=== PATIENT | female | born 1980 | race Two or more races ===

== ENCOUNTER 2023-07-26 01:43 | Emergency (ER) | payer OTHER ==
[2023-07-26] MEDS ORDERED: MECLIZINE 12.5 MG TAB PO STA (03:51)
[2023-07-26] MEDS ORDERED: ONDANSETRON ODT 4 MG TAB PO STA (03:51)
--- NOTE | 2023-07-26 04:56 | ED ---
General Adult HPI - General Chief complaint: Overdose Stated complaint: possible drug overdose Time Seen by Provider: 07/26/23 03:50 Source: patient, RN notes reviewed, old records reviewed Mode of arrival: ambulatory Limitations: no limitations - History of Present Illness Initial comments: Patient is a 43-year-old female with a history remarkable for back surgeries in the past presents emergency department for an episode of nausea and vomiting after taking 5 mg marijuana gummy. States he typically does not take this dose. Again expenses these symptoms immediately afterwards and was told by family to come to the emergency department for evaluation. This occurred multiple hours ago. I evaluated the patient and she was placed in a room. She does endorse mild nausea but is feeling somewhat improved at this time. No other acute complaints. Denies chest pain or shortness of breath. Denies abdominal pain. Endorses an episode of lightheadedness as well. No other acute complaints. Presents for further evaluation. No other drugs or alcohol. - Related Data Allergies Allergy/AdvReac Type Severity Reaction Status Date / Time adhesive tape Allergy Rash/Hives Verified 07/26/23 02:08 oxycodone [From Percocet] AdvReac Anaphylaxis Verified 07/26/23 02:06 Review of Systems ROS Statement: Those systems with pertinent positive or pertinent negative responses have been documented in the HPI. Review of Systems: CONST: Denies fever EYES: Denies blurry vision ENT: Denies nasal congestion C/V: Denies Chest pain RESP: Denies shortness of breath GI: Denies abdominal pain : Denies dysuria SKIN: Denies rash. MSK: Denies joint pain. NEURO: Denies headache ROS Other: All systems not noted in ROS Statement are negative. Past Medical History Past Medical History: No Reported History History of Any Multi-Drug Resistant Organisms: None Reported Past Surgical History: Back Surgery Additional Past Surgical History / Comment(s): Back surgery x4, nerve stimulator implanted in back Past Psychological History: PTSD Smoking Status: Never smoker Past Alcohol Use History: None Reported Past Drug Use History: Marijuana General Exam - General Exam Comments Initial Comments: General: Appears in no acute distress. HEAD: Normal with no signs of head trauma. EYES: PERRLA, EOMI, conjunctiva normal, no discharge. Pupils are 3 mm and equal bilaterally. ENT: Hearing grossly intact, normal oropharynx. RESPIRATORY: Clear breath sounds bilaterally. No wheezes, rales, or rhonchi. C/V: Regular rate and rhythm. S1 and S2 auscultated, no edema, peripheral pulses 2+ and intact throughout ABD: Abd is soft, nontender, nondistended EXT: Normal range of motion, no obvious deformity SKIN: No rashes or lesions observed on exposed skin. NEURO: Alert and oriented x 4. Cranial nerves II-XII intact. No focal sensory or strength deficits. Limitations: no limitations Course Vital Signs 07/26/23 02:02 Temperature 98.6 F Pulse Rate 66 Respiratory 18 Rate Blood Pressure 105/59 O2 Sat by Pulse 100 Oximetry Medical Decision Making - Medical Decision Making Was pt. sent in by a medical professional or institution (, [facility], FLATBED PRESS OPERATOR, urgent care, hospital, or fdc...) When possible be specific @ -No Did you speak to anyone other than the patient for history (EMS, parent, family, police, friend...)? What history was obtained from this source @ -No Did you review nursing and triage notes (agree or disagree)? Why? @ -I reviewed and agree with nursing and triage notes Were old charts reviewed (outside hosp., previous admission, EMS record, old EKG, old radiological studies, urgent care reports/EKG's, fdc records)? Report findings @ -No old charts were reviewed Differential Diagnosis (chest pain, altered mental status, abdominal pain women, abdominal pain men, vaginal bleeding, weakness, fever, dyspnea, syncope, headache, dizziness, GI bleed, back pain, seizure, CVA, palpatations, mental health, musculoskeletal)? @ -Marijuana intoxication, nausea and vomiting, external overdose. This list is not all inclusive. EKG interpreted by me (3pts min.). @ -None done X-rays interpreted by me (1pt min.). @ -None done CT interpreted by me (1pt min.). @ -None done U/S interpreted by me (1pt. min.). @ -None done What testing was considered but not performed or refused? (CT, X-rays, U/S, labs)? Why? @ -Considered laboratory studies however patient appears in no acute distress. What meds were considered but not given or refused? Why? @ -None Did you discuss the management of the patient with other professionals (professionals i.e. GREY Vazquez, FLATBED PRESS OPERATOR, lab, RT, psych nurse, social worker masters, rn home health, teacher, special skills officer, wrapper caser)? Give summary @ -No Was smoking cessation discussed for >3mins.? @ -No Was critical care preformed (if so, how long)? @ -No Were there social determinants of health that impacted care today? How? (Homelessness, low income, unemployed, alcoholism, drug addiction, transportation, low edu. Level, literacy, decrease access to med. care, [facility], rehab)? @ -No Was there de-escalation of care discussed even if they declined (Discuss DNR or withdrawal of care, Hospice)? DNR status @ -No What co-morbidities impacted this encounter? (DM, HTN, Smoking, COPD, CAD, Cancer, CVA, ARF, Chemo, Hep., AIDS, mental health diagnosis, sleep apnea, morbid obesity)? @ -None Was patient admitted / discharged? Hospital course, mention meds given and route, prescriptions, significant lab abnormalities, going to OR and other pertinent info. @ -Based on the patient's presentation and physical exam, I'm concerned for marijuana intoxication. Vital signs are within acceptable limits. Endorses mild nausea at this time. She'll be symptomatically treated with a dose of meclizine and Zofran and observed here in the department. She was in agreement with this plan. I evaluated her when she was placed in a room. On reevaluation, patient is feeling much improved. She was to home. I believe this is reasonable. Counseled her on cessation of marijuana gummies considering her response to them. She was in agreement this plan. I instructed the patient to follow up with their PCP in the next 1-3 days. I explained that the patient should return to the emergency department if they experience any worsening symptoms. Strict return precautions were discussed with the patient. The patient expressed understanding of these instructions. I answered all questions that the patient had. The patient was discharged home in good condition with their prescriptions and follow up information. Undiagnosed new problem with uncertain prognosis? @ -No Drug Therapy requiring intensive monitoring for toxicity (Heparin, Nitro, Insulin, Cardizem)? @ -No Were any procedures done? @ -No Diagnosis/symptom? @ -Marijuana intoxication Acute, or Chronic, or Acute on Chronic? @ -Acute Uncomplicated (without systemic symptoms) or Complicated (systemic symptoms)? @ -Complicated Side effects of treatment? @ -No Exacerbation, Progression, or Severe Exacerbation? @ -No Poses a threat to life or bodily function? How? (Chest pain, [place], [place], pneumonia, PE, COPD, DKA, ARF, appy, cholecystitis, CVA, Diverticulitis, Homicidal, Suicidal, threat to staff... and all critical care pts) @ -No Disposition Clinical Impression: Marijuana intoxication Disposition: HOME SELF-CARE Condition: Good Instructions (If sedation given, give patient instructions): Cannabis Abuse (ED) Is patient prescribed a controlled substance at d/c from ED?: No Referrals: Madina Guajardo DO [Primary Care Provider] - 1-2 days Time of Disposition: 04:51
[2023-07-26 05:24] VITALS: BP 108/71; PULSE 74; RESP 16; TEMP 98.1
== END 2023-07-26 05:19 | disposition home or self-care (01) ==
LOC: EC 01:43
DX: F12.929 Cannabis use, unspecified with intoxication, unspecified (principal); Z88.5 Allergy status to narcotic agent; Z88.8 Allergy status to other drugs, medicaments and biological substances
CPT/HCPCS: 99283